=== PATIENT | female | born 1965 | race African-American/Black ===

== ENCOUNTER 2020-12-30 08:16 | Outpatient (CLI) | payer OTHER | END 2020-12-30 08:17 | disposition home or self-care (01) | LOC: CSHMAMMO 08:16 | PROVIDERS: ATTEND Family Medicine | DX: Z12.31 Encounter for screening mammogram for malignant neoplasm of breast (principal); Z80.3 Family history of malignant neoplasm of breast | CPT/HCPCS: 77067 ==